=== PATIENT | female | born 1945 | race Caucasian/White ===

== ENCOUNTER 2023-11-16 06:31 | Day surgery (SDC) | payer MEDICARE, OTHER ==
[~2023-11-16] VITALS: Ht 170.2 cm; Wt 71.8 kg
[~2023-11-16 06:31] MED LIST: ASPI81TA52 PO; ATOR10TA70 PO; CARV-49 PO; HYDR-4383 PO; LEVO150T PO; LISI10TA27 PO; RANI-648 PO
[2023-11-16] MEDS ORDERED: EZET10TA48 PO (06:49)
[2023-11-16] MEDS ORDERED: sodium bicarbonate 1meq/ml syr 150 ML in dextrose 5%-water 1,000 ML IV SCH (06:55)
[2023-11-16] MEDS ORDERED: diphenhydrAMINE 25mg capsule PO PRN (06:55)
[2023-11-16 07:00] VITALS: BP 137/61; PULSE 63; RESP 15; TEMP 98.1; O2SAT 96
[2023-11-16] MEDS ORDERED: PRAV20TA4 PO (07:01)
[2023-11-16] MEDS ORDERED: CARV25TA3 PO (07:01)
[2023-11-16] MEDS ORDERED: AMLO5TAB16 PO (07:03)
[2023-11-16] MEDS ORDERED: LEVO88TA2 PO (07:03)
[2023-11-16] MEDS ORDERED: LIOT5TAB10 PO (07:03)
[2023-11-16] MEDS ORDERED: ESTR1PAT97 (07:05)
[2023-11-16] MEDS ORDERED: QUET25TA36 PO (07:05)
[2023-11-16] MEDS ORDERED: CHOL100025 PO (07:08)
[2023-11-16] MEDS ORDERED: METF-436 PO (07:08)
[2023-11-16] MEDS ORDERED: PROG100C11 PO (07:08)
[2023-11-16] MEDS ORDERED: EST1T PO (07:08)
[2023-11-16] MEDS ORDERED: VITA-268 PO (07:08)
[2023-11-16] MEDS ORDERED: MECO10005 PO (07:10)
[2023-11-16] MEDS: sodium bicarbonate 1meq/ml syr 150 ML in dextrose 5%-water 1,000 ML IV ONE (07:20)
[2023-11-16] MEDS: normal saline 1,000 ML IV SCH (07:20)
[2023-11-16 07:32] LABS: BASOPHILS # (AUTO) 0.1 X10'3 (0-0.2); BASOPHILS % (AUTO) 0.7 % (0-1); EOSINOPHILS # (AUTO) 0.2 X10'3 (0-0.9); EOSINOPHILS % (AUTO) 1.7 % (0-6); HEMATOCRIT 42.5 % (35.0-45.0); HEMOGLOBIN 14.3 g/dl (12.0-16.0); LYMPHOCYTES % (AUTO) 27.7 % (21-51); MEAN CORPUSCULAR HEMOGLOBIN 28.7 PG (27.0-31.0); MEAN CORPUSCULAR HGB CONC 33.7 g/dL (33.0-36.5); MEAN CORPUSCULAR VOLUME 85.1 FL (78-98); MEAN PLATELET VOLUME 9.7 FL (7.4-10.4); MONOCYTES # (AUTO) 0.7 X10'3 (0-0.9); MONOCYTES % (AUTO) 6.1 % (2-12); NEUTROPHILS # (AUTO) 6.9 X10'3 (1.8-7.7); NEUTROPHILS % (AUTO) 63.8 % (42-75); PLATELET COUNT 215 X10'3 (140-440); RED BLOOD COUNT 4.99 X10'6 (4.20-5.60); RED CELL DISTRIBUTION WIDTH 15.5 % (11.5-14.5); WHITE BLOOD COUNT 10.8 X10'3 (4.5-11.0)
[2023-11-16 07:38] LABS: ALBUMIN 3.8 G/DL (3.4-5.0); ANION GAP 7 (8-16); BLOOD UREA NITROGEN 20 MG/DL (7-18); BUN/CREATININE RATIO 22.5 (10.0-20.0); CALCIUM 9.8 MG/DL (8.5-10.1); CHLORIDE 108 MMOL/L (99-107); CREATININE 0.89 MG/DL (0.40-0.90); GLUCOSE 114 MG/DL (70-104); MAGNESIUM 1.9 MG/DL (1.5-2.4); POTASSIUM 4.1 MMOL/L (3.5-5.1); SODIUM 139 MMOL/L (135-145); TOTAL CARBON DIOXIDE 24.3 MMOL/L (24-32); eCRCL 52 ML/MIN; eGFR 62 ML/MIN
[2023-11-16 07:39] LABS: PROTHROMBIN TIME 10.4 SECONDS (9.0-12.0)
[2023-11-16 08:00] VITALS: RESP 15; O2SAT 96
[2023-11-16] MEDS ORDERED: LIDOcaine 1% 30ml preserv. free vial ONE (08:33)
[2023-11-16] MEDS ORDERED: fentaNYL/PF 50MCG/1 ML 2ML syringe ONE ×2 (08:34→09:49)
[2023-11-16] MEDS ORDERED: heparin 1,000unit/ml 10ml vial 10 ML ONE (08:34)
[2023-11-16] MEDS ORDERED: midazolam 1 mg/ML 2ml injection ONE ×3 (08:34→10:11)
[2023-11-16] MEDS ORDERED: iohexol 350MG/ML 100ml bottle IV ONE (08:34)
[2023-11-16] MEDS ORDERED: HYDROmorphone 1 mg/ml syringe ONE (10:06)
[2023-11-16] MEDS ORDERED: ondansetron/PF 4mg/2ml inj IV PRN (11:05)
[2023-11-16] MEDS ORDERED: normal saline 1000ml 1,000 ML IV SCH (11:05)
[2023-11-16] MEDS ORDERED: HYDROcodone/acetaminophen 5mg/325mg tablet PO PRN (11:10)
[2023-11-16] MEDS ORDERED: proCHLORperazine 10 MG/2 ml inj IV PRN (11:10)
[2023-11-16] MEDS ORDERED: HYDROcodone/acetaminophen 10/325mg tab PO PRN (11:10)
[2023-11-16] MEDS ORDERED: OXAZEpam 15mg capsule PO PRN (11:10)
== END 2023-11-16 14:10 | disposition home or self-care (01) ==
LOC: SSTAY O 06:31
PROVIDERS: ATTEND Internal Medicine Cardiovascular Disease
DX: I70.211 Atherosclerosis of native arteries of extremities with intermittent claudication, right leg (principal); I10 Essential (primary) hypertension; E78.5 Hyperlipidemia, unspecified; F17.200 Nicotine dependence, unspecified, uncomplicated; Z88.0 Allergy status to penicillin
CPT/HCPCS: 36200; 36415; 75630; 80048; 83735; 85025; 85610; 93005; 99152; 99153; A4615; A6258; C1760; C1769; C1894; J1170; J1644; J2001; J2250; J3010; J3490; J7030; J7070; Q9967